=== PATIENT | male | born 1980 | race Caucasian/White ===

== ENCOUNTER 2017-08-31 15:26 | Emergency (ER) | payer MEDICARE, OTHER ==
[~2017-08-31] VITALS: Ht 180.3 cm; Wt 97.1 kg
[~2017-08-31 15:26] MED LIST: CLON.5 PO; CLOZ100 PO; Klonopin0.5 MG PO; PROP10 PO; [UNRECOGNIZED DRUG - OTHER] PO
[2017-08-31 17:46] LABS: BASOPHILS ABSOLUTE AUTO 0.03 K/mm3 (0.00-0.23); BASOPHILS PERCENT AUTO 0 % (0-2); EOSINOPHILS PERCENT AUTO 0 % (0-6); Hematocrit 23.9 % (37.0-53.0); Hemoglobin 6.2 g/dL (13.5-17.5); IMMATURE GRAN ABSOLUTE AUTO 0.02 K/mm3 (0.00-0.10); IMMATURE GRAN PERCENT AUTO 0 % (0-1); LYMPHOCYTES ABSOLUTE AUTO 1.76 K/mm3 (0.84-5.20); LYMPHOCYTES PERCENT AUTO 25 % (21-46); MONOCYTES ABSOLUTE AUTO 0.73 K/mm3 (0.16-1.47); MONOCYTES PERCENT AUTO 10 % (4-13); Mean Corpuscular HGB 16.8 pg (26.0-34.0); Mean Corpuscular HGB Conc 25.9 g/dL (31.5-36.5); Mean Corpuscular Volume 65 fL (80-100); Mean Platelet Volume 9.9 fL (9.1-12.4); NEUTROPHILS PERCENT AUTO 64 % (41-73); Platelet Count 371 K/mm3 (150-400); RDW Coefficient Variation 19.5 % (11.7-14.2); RDW Standard Deviation 44.8 fL (35.1-46.3); Red Blood Cell Count 3.68 M/mm3 (4.30-5.90); White Blood Cell Count 7.04 K/mm3 (4.00-11.30)
[2017-08-31 18:08] LABS: Alanine Aminotransfer (ALT/SGP 24 U/L (12-78); Albumin/Globulin Ratio 1.2 (0.8-1.8); Alk Phos 154 U/L (50-136); Anion Gap 8 mmol/L (6-16); Aspartate Aminotrans (AST/SGOT 19 U/L (12-37); Bilirubin, Total 0.4 mg/dL (0.1-1.0); Blood Urea Nitrogen 15 mg/dL (8-24); Bun/Creatinine Ratio 15.1 (12.0-20.0); CO2, Blood 25 mmol/L (21-32); Calcium, Blood 8.5 mg/dL (8.5-10.1); Chloride, Blood 108 mmol/L (98-108); Globulin, Blood 3.2 g/dL (2.2-4.0); Glomerular Filtration Rate >60 (60-); Glucose, Blood 95 mg/dL (70-99); Potassium, Blood 4.1 mmol/L (3.5-5.5); Sodium, Blood 141 mmol/L (136-145); Total Protein, Blood 7.2 g/dL (6.4-8.2)
[2017-08-31 18:16] LABS: IMMATURE RETIC FRACTION 24.5 % (2.3-16.0); RETICULOCYTE COUNT PERCENT 2.26 % (0.50-2.50)
[2017-08-31 18:29] LABS: Percent Saturation 2.7 % (20.0-50.0)
[2017-09-01] MEDS ORDERED: Ferrous Sulfat325 M2 PO (00:32)
== END 2017-09-01 00:47 | disposition home or self-care (01) ==
LOC: ER 15:26
PROVIDERS: Emergency Medicine; Physician Assistant
DX: D50.9 Iron deficiency anemia, unspecified (principal); F20.9 Schizophrenia, unspecified; Z79.899 Other long term (current) drug therapy
CPT/HCPCS: 36415; 36430; 80053; 82272; 82728; 83540; 83550; 85025; 85045; 86850; 86900; 86901; 86923; 93005; 93010; 99284; J7030; P9016

== ENCOUNTER 2018-07-18 07:38 | Day surgery (SDC) | payer MEDICARE, OTHER ==
[~2018-07-18] VITALS: Ht 172.7 cm; Wt 100.0 kg
[~2018-07-18 07:38] MED LIST changes: +FERRO-TIME325 MG PO; +Ferrous Sulfat325 M2 PO; +Zantac150 MG PO
--- NOTE | 2018-07-18 10:02 | NUR ---
07/18/18 1002 Enrique Ventura LATE ENTRY: PT 02 SAT DROPPED TO 88-90. 02 INCREASED TO 5 L. PT COUGHING. ORALLY SUCTIONED WITH SCANT AMOUNT OF CLEAR SECRETIONS. PT O2 DROPPED TO 88. ORAL AIRWAY PLACED. PT 02 REMAINS BETWEEN 88-92.
== END 2018-07-18 10:36 | disposition home or self-care (01) ==
LOC: ORSCSDS 07:38
PROVIDERS: Student in an Organized Health Care Education/Training Program
PROC: 0DB58ZX Excision of Esophagus, Via Natural or Artificial Opening Endoscopic, Diagnostic (ICD-10-PCS; principal; 2018-07-18 09:00)
PROC: 0DBN8ZX Excision of Sigmoid Colon, Via Natural or Artificial Opening Endoscopic, Diagnostic (ICD-10-PCS; principal; 2018-07-18 09:00)
PROC: 0DB68ZX Excision of Stomach, Via Natural or Artificial Opening Endoscopic, Diagnostic (ICD-10-PCS; principal; 2018-07-18 09:00)
PROC: 0DB98ZX Excision of Duodenum, Via Natural or Artificial Opening Endoscopic, Diagnostic (ICD-10-PCS; principal; 2018-07-18 09:00)
DX: D50.9 Iron deficiency anemia, unspecified (principal); K29.80 Duodenitis without bleeding; D12.5 Benign neoplasm of sigmoid colon; K44.9 Diaphragmatic hernia without obstruction or gangrene; K29.70 Gastritis, unspecified, without bleeding; F17.210 Nicotine dependence, cigarettes, uncomplicated; K21.0 Gastro-esophageal reflux disease with esophagitis; I10 Essential (primary) hypertension; Z79.899 Other long term (current) drug therapy
CPT/HCPCS: 88305; 88342; J2250; J2704; J7120

== ENCOUNTER 2019-02-27 11:44 | Day surgery (SDC) | payer MEDICARE, OTHER ==
[~2019-02-27] VITALS: Ht 172.7 cm; Wt 95.4 kg
--- NOTE | 2019-02-27 14:47 | NUR ---
02/27/19 1447 Ophelia Vizcaino PROCEDURE ABORTED DUE TO POOR PREP.
[2019-04-25] MEDS ORDERED: METAMUCIL0.4 GM PO (14:00)
[2019-04-25] MEDS ORDERED: SERT50 PO (14:00)
== END 2019-02-27 15:20 | disposition home or self-care (01) ==
LOC: ORSCSDS 11:44
PROVIDERS: Student in an Organized Health Care Education/Training Program
PROC: 0DJD8ZZ Inspection of Lower Intestinal Tract, Via Natural or Artificial Opening Endoscopic (ICD-10-PCS; principal; 2019-02-27 13:15)
DX: R15.0 Incomplete defecation (principal); F20.9 Schizophrenia, unspecified; D64.9 Anemia, unspecified; F32.9 Major depressive disorder, single episode, unspecified; K21.9 Gastro-esophageal reflux disease without esophagitis; F17.210 Nicotine dependence, cigarettes, uncomplicated; E66.9 Obesity, unspecified; Z68.33 Body mass index [BMI] 33.0-33.9, adult; Z79.899 Other long term (current) drug therapy
CPT/HCPCS: J2704; J7120

== ENCOUNTER 2019-05-01 12:20 | Day surgery (SDC) | payer MEDICARE, OTHER ==
[~2019-05-01] VITALS: Ht 172.7 cm; Wt 96.9 kg
[~2019-05-01 12:20] MED LIST changes: +METAMUCIL0.4 GM PO; +SERT50 PO
--- NOTE | 2019-05-01 14:06 | NUR ---
05/01/19 1406 Juliann Williamson SIMETHICONE USED DURING PROCEDURE.
== END 2019-05-01 14:42 | disposition home or self-care (01) ==
LOC: ORSCSDS 12:20
PROVIDERS: Student in an Organized Health Care Education/Training Program
PROC: 0DJD8ZZ Inspection of Lower Intestinal Tract, Via Natural or Artificial Opening Endoscopic (ICD-10-PCS; principal; 2019-05-01 13:30)
DX: R15.0 Incomplete defecation (principal); K64.8 Other hemorrhoids; I10 Essential (primary) hypertension; K62.89 Other specified diseases of anus and rectum; D50.9 Iron deficiency anemia, unspecified; F17.210 Nicotine dependence, cigarettes, uncomplicated; Z79.899 Other long term (current) drug therapy
CPT/HCPCS: J2704; J7120

== ENCOUNTER 2020-09-28 12:21 | Emergency (ER) | payer MEDICARE, OTHER ==
[~2020-09-28] VITALS: Ht 172.7 cm; Wt 110.2 kg
[2020-09-28 14:29] LABS: Source, Urine Voided
[2020-09-28 14:44] LABS: Appearance, Urine Clear (Clear); Bilirubin, Urine Neg (Neg); Blood, Urine Neg (Neg); Color, Urine Yellow (P-Yellow); Glucose Qualitative, Urine Neg (Neg); Ketones, Urine Neg (Neg); Leukocyte Esterase, Urine Neg (Neg); Nitrite, Urine Neg (Neg); Protein, Urine Neg (Neg); Specific Gravity, Urine 1.005 (1.003-1.022); Urobilinogen, Urine NORM (Normal)
[2020-09-28] MEDS ORDERED: IBUP400 PO (15:13)
[2020-09-30 02:06] LABS: CHLAMYDIA TRACHOMATIS, NAA Negative (Negative)
== END 2020-09-28 15:17 | disposition home or self-care (01) ==
LOC: ER 12:21
PROVIDERS: Emergency Medicine
DX: R10.31 Right lower quadrant pain (principal); R10.32 Left lower quadrant pain; R62.50 Unspecified lack of expected normal physiological development in childhood; Z79.899 Other long term (current) drug therapy
CPT/HCPCS: 76870; 81003; 87491; 87591; 99284-25

== ENCOUNTER 2024-11-14 10:40 | Emergency (ER) | payer MEDICARE, OTHER ==
[~2024-11-14] VITALS: Ht 172.7 cm; Wt 104.3 kg
[~2024-11-14 10:40] MED LIST changes: +ALBU90OI INH; +AMOCLA875 PO; +BREO ELLIPTA 21 EAC1 INH; +CIME400; +CLOZARIL PO; +COUGH PO; +DEXT30SU PO; +DEXTROMETHORPHA PO; +DOC250; +Docusate Sodiu250 MG PO; +FAMO20 PO; +FERSU300 PO; +FISH OIL 1,2001 EAC4; +FISH OIL 1,2001 EAC4 PO; +FLUT1DIS2; +FLUTICASONE-SAL12 G1 INH; +IBUP400 PO; +KLONOPIN0.5 M9 PO; +MELO7.5 PO; +METAMUCIL174 GM PO; +MIRALAX17 GM; +MIRALAX17 GM PO; +MIRALAX1714 PO; +OMEP20ER PO; +One Daily Comp1 EACH PO; +VANCOCIN HCL125 MG PO; +VISBIOME 112.51 EACH PO; +VITAMIN C125 MG; +VITAMIN C125 MG PO; +VITAMIN D350 MC3; +VITAMIN D350 MC3 PO; +ZOLOFT50 MG PO; +[UNRECOGNIZED DRUG - OTHER] PO
[2024-11-14 12:23] LABS: BASOPHILS ABSOLUTE AUTO 0.01 K/mm3 (0.00-0.23); BASOPHILS PERCENT AUTO 0 % (0-2); EOSINOPHILS ABSOLUTE AUTO 0.00 K/mm3 (0.00-0.68); EOSINOPHILS PERCENT AUTO 0 % (0-6); Hematocrit 43.9 % (37.0-53.0); Hemoglobin 14.4 g/dL (13.5-17.5); IMMATURE GRAN ABSOLUTE AUTO 0.02 K/mm3 (0.00-0.10); IMMATURE GRAN PERCENT AUTO 0 % (0-1); LYMPHOCYTES ABSOLUTE AUTO 1.24 K/mm3 (0.84-5.20); LYMPHOCYTES PERCENT AUTO 19 % (21-46); MONOCYTES ABSOLUTE AUTO 0.64 K/mm3 (0.16-1.47); MONOCYTES PERCENT AUTO 10 % (4-13); Mean Corpuscular HGB Conc 32.8 g/dL (31.5-36.5); Mean Corpuscular Volume 85 fL (80-100); NEUTROPHILS ABSOLUTE AUTO 4.76 K/mm3 (1.96-9.15); NEUTROPHILS PERCENT AUTO 71 % (41-73); NRBC ABSOLUTE 0.00 K/mm3 (0.00-0.02); NRBC Auto 0.0 /100 WBC (0.0-0.2); Platelet Count 198 K/mm3 (150-400); RDW Coefficient Variation 16.0 % (11.7-14.2); RDW Standard Deviation 50.5 fL (35.1-46.3)
[2024-11-14 12:48] LABS: Alanine Aminotransfer (ALT/SGP 55.0 U/L (12-78); Albumin, Blood 4.0 g/dL (3.4-5.0); Albumin/Globulin Ratio 1.1 (0.8-1.8); Anion Gap 9.0 mmol/L (3-11); Aspartate Aminotrans (AST/SGOT 31.0 U/L (12-37); Bilirubin, Total 0.5 mg/dL (0.1-1.0); Blood Urea Nitrogen 14.0 mg/dL (8-24); CO2, Blood 26.0 mmol/L (21-32); Calcium, Blood 9.1 mg/dL (8.5-10.1); Chloride, Blood 105.0 mmol/L (98-108); Creatinine, Blood 0.8 mg/dL (0.60-1.20); Globulin, Blood 3.8 g/dL (2.2-4.0); Glucose, Blood 99.0 mg/dL (70-99); Potassium, Blood 4.2 mmol/L (3.5-5.5); Sodium, Blood 136.0 mmol/L (136-145); Total Protein, Blood 7.8 g/dL (6.4-8.2)
[2024-11-14 14:10] VITALS: BP 138/84
== END 2024-11-14 15:24 | disposition home or self-care (01) ==
LOC: ER 10:40
PROVIDERS: Student in an Organized Health Care Education/Training Program
DX: Z09 Encounter for follow-up examination after completed treatment for conditions other than malignant neoplasm (principal); K44.9 Diaphragmatic hernia without obstruction or gangrene; K21.9 Gastro-esophageal reflux disease without esophagitis; E78.5 Hyperlipidemia, unspecified; F17.200 Nicotine dependence, unspecified, uncomplicated; Z79.899 Other long term (current) drug therapy
CPT/HCPCS: 71260; 80053; 85025; 99283-25; Q9967